=== PATIENT | female | born 1955 | race Caucasian/White ===

== ENCOUNTER 2016-10-19 20:33 | Emergency (ER) | payer OTHER ==
[~2016-10-19] VITALS: Ht 154.9 cm; Wt 70.0 kg
[2016-10-19 20:36] VITALS: BP 134/86; PULSE 76; TEMP 97.6
[2016-10-19] MEDS ORDERED: VOLTAREN 75 DR75 MG PO (20:51)
[2016-10-19] MEDS ORDERED: DITROPAN XL10 MG PO (20:51)
[2016-10-19] MEDS ORDERED: ZOFRAN 4MG T4 MG/TAB PO (21:22)
[2016-10-19] MEDS ORDERED: NORCO 325 MG-51 TAB PO (21:22)
== END 2016-10-19 21:49 | disposition home or self-care (01) ==
LOC: COL.ER 20:33
DX: M54.5 Low back pain (principal); Z87.39 Personal history of other diseases of the musculoskeletal system and connective tissue; Z87.59 Personal history of other complications of pregnancy, childbirth and the puerperium
CPT/HCPCS: J1885; J2360